=== PATIENT | male | born 1980 | race Caucasian/White ===

== ENCOUNTER 2018-01-18 07:20 | Day surgery (SDC) | payer OTHER ==
[~2018-01-18] VITALS: Ht 182.9 cm; Wt 92.9 kg
[~2018-01-18 07:20] MED LIST: None per pt.
[2018-01-18] MEDS ORDERED: LACTATED RINGERS 1,000 ML IV SCH (07:43)
[2018-01-18 07:59] VITALS: BP 123/82
[2018-01-18] MEDS ORDERED: ONDANSETRON ODT 8 MG PO ONE (08:00)
[2018-01-18] MEDS ORDERED: GABAPENTIN 300 MG CAPSULE PO ONE (08:00)
[2018-01-18] MEDS ORDERED: ACETAMINOPHEN 500 MG TABLET PO ONE (08:00)
[2018-01-18] MEDS ORDERED: MIDAZOLAM 1 MG/ML, 2ML ONE (08:41)
[2018-01-18] MEDS ORDERED: FENTANYL PF 250 MCG/5ML ONE (08:41)
[2018-01-18] MEDS ORDERED: LIDOCAINE JELLY 2%, 30GM ONE ×9 (08:41→08:42)
[2018-01-18] MEDS ORDERED: BUPIVACAINE/PF-EPI 0.5% 1:200K ONE (08:43)
[2018-01-18] MEDS ORDERED: KETOROLAC 30 MG/1 ML ONE (08:56)
[2018-01-18] MEDS ORDERED: MEPERIDINE/PF 25MG/0.5ML IVPush PRN (09:30)
[2018-01-18] MEDS ORDERED: ALBUTEROL/IPRATROPIUM 2.5MG/0.5MG, 3 ML NPPB PRN (09:30)
[2018-01-18] MEDS ORDERED: ONDANSETRON 2MG/ML, 2ML IV PRN (09:30)
[2018-01-18] MEDS ORDERED: PROMETHAZINE 25 MG SUPP PR PRN (09:30)
[2018-01-18] MEDS ORDERED: OXYcodone 5 MG/5 ML ORAL.SOL UDC PO PRN (09:30)
[2018-01-18] MEDS ORDERED: HYDROmorphone 1 MG/ML, 1ML IV PRN (09:30)
[2018-01-18] MEDS ORDERED: SCOPOLAMINE PATCH, 1.5MG PATCH.TD72 TD PRN (09:30)
[2018-01-18] MEDS ORDERED: MIDAZOLAM 1 MG/ML, 2ML IV PRN (09:30)
[2018-01-18] MEDS ORDERED: LABETALOL 5MG/ML, 20ML IV PRN (09:30)
[2018-01-18] MEDS ORDERED: PROPOFOL 10 MG/ML, 20ML ONE (10:16)
[2018-01-18] MEDS ORDERED: NEOSTIGMINE 1 MG/ML, 10ML ONE (10:16)
[2018-01-18] MEDS ORDERED: ROCURONIUM 10MG/ML,5ML ONE (10:16)
[2018-01-18] MEDS ORDERED: DEXAMETHASONE 4 MG/ML, 1ML ONE (10:16)
[2018-01-18] MEDS ORDERED: GLYCOPYRROLATE 0.2MG/1ML, 5ML ONE (10:16)
[2018-01-18] MEDS ORDERED: CEFAZOLIN 1,000 MG ONE (10:16)
[2018-01-18] MEDS ORDERED: FENTANYL PF 100 MCG/2ML ONE (10:40)
[2018-01-18] MEDS ORDERED: OXYcodone 5 MG/5 ML ORAL.SOL UDC ONE (10:40)
[2018-01-18] MEDS: FENTANYL PF 100 MCG/2ML IV PRN ×2 (10:59→11:08)
== END 2018-01-18 14:15 | disposition home or self-care (01) ==
LOC: OUT 07:20
PROVIDERS: ATTEND Surgery
DX: K40.90 Unilateral inguinal hernia, without obstruction or gangrene, not specified as recurrent (principal); Z72.89 Other problems related to lifestyle
CPT/HCPCS: 49650; C1781; J0690; J1100; J1885; J2250; J2704; J2710; J3010; J3490; J7120; Q0162